=== PATIENT | male | born 1990 | race Two or more races ===

== ENCOUNTER 2020-03-12 15:35 | Emergency (ER) | payer MEDICARE, MEDICAID ==
[~2020-03-12] VITALS: Ht 170.2 cm; Wt 80.3 kg
[2020-03-12 15:54] VITALS: BP 165/79
--- NOTE | 2020-03-12 17:49 | NUR ---
BREAK RN: PT TO ROOM FROM LOBBY
--- NOTE | 2020-03-12 17:52 | NUR ---
THIS IS 29 YEAR OLD MALE WHO IS ACCOMPANIED BY HIS SISTER. PT HAS A RED RAISE AREA ON RIGHT LOWER BACK AREA. PT IS NON-VERBAL DUE TO SPECIAL NEEDS. SISTER STATES IT HAS BEEN THERE FOR OVER A YEAR, BUT RECENTLY IRRITATING HIM.
[2020-03-12] MEDS ORDERED: LIDOCAINE-MPF 1%, 5ML INFIL ONE (18:30)
[2020-03-12] MEDS ORDERED: PROPOFOL 10 MG/ML, 20ML IVPush ONE (18:30)
[2020-03-12] MEDS ORDERED: PROPOFOL 10 MG/ML, 20ML ONE ×2 (18:46→18:47)
[2020-03-12] MEDS ORDERED: LIDOCAINE-MPF 1%, 5ML ONE (18:47)
--- NOTE | 2020-03-12 18:54 | NUR ---
IV STARTED IN RAC, PT TOLERATED WELL. I&D SUPPLIES SET UP AT BEDSIDE. PAPERWORK LABELED AT BEDSIDE. PT ATTACHED TO MONITORS. CALL LIGHT IN REACH.
== END 2020-03-12 20:20 | disposition home or self-care (01) ==
LOC: ED 18:38
DX: L02.212 Cutaneous abscess of back [any part, except buttock and flank] (principal)
CPT/HCPCS: 10060; 76857; 99152; 99285

== ENCOUNTER 2020-03-14 16:37 | Emergency (ER) | payer MEDICARE, MEDICAID ==
[~2020-03-14] VITALS: Ht 170.2 cm; Wt 80.8 kg
[2020-03-14 16:40] VITALS: BP 141/87
--- NOTE | 2020-03-14 16:57 | NUR ---
PT BACK TO ROOM FROM LOBBY. PT HERE TO HAVE PACKING REPLACED FROM CYST DRAINAGE. FAMILY AT BEDSIDE
== END 2020-03-14 17:55 | disposition home or self-care (01) ==
LOC: ED 16:45
DX: D17.79 Benign lipomatous neoplasm of other sites (principal)
CPT/HCPCS: 99282